=== PATIENT | female | born 1970 | race Caucasian/White ===

== ENCOUNTER 2019-02-21 17:28 | Inpatient (IN) | payer BC ==
[~2019-02-21 17:28] MED LIST: Iopamidol-370 76% 500 ML 1 ML ONE
[2019-02-21 18:08] LABS: #Lymphocytes 1.3 thou/uL (1.20-3.40); #Monocytes 0.3 thou/uL (0.11-0.59); #Neutrophils 10.2 thou/uL (1.40-6.50); %Basophils 0.2 % (0.0-1.0); %Eosinophils 0.3 % (0.0-10.0); %Lymphocytes 10.6 % (21.0-51.0); %Monocytes 2.6 % (0.0-10.0); %Neutrophils 86.3 % (42.0-75.0); Hemoglobin 15.6 g/dL (12.0-16.0); Mean Corpuscular HGB CONC 33.8 g/dL (32.0-36.0); Mean Corpuscular Volume 91.5 fL (78.0-98.0); Mean Platelet Volume 9.5 fL (7.4-10.4); Platelet Count 220 thou/uL (130-400); Red Blood Cell (RBC) Count 5.03 mill/uL (4.20-5.40); White Blood Cell (WBC) Count 11.8 thou/uL (4.8-10.8)
[2019-02-21 18:31] LABS: ALT (SGPT) 20 U/L (8-55); AST (SGOT) 18 U/L (5-34); Albumin 4.6 g/dL (3.5-5.0); Alkaline Phosphatase 57 U/L (40-110); Anion Gap 11 mmol/L (10-20); BUN (Urea Nitrogen) 10 mg/dL (7.0-18.7); Calc. Creatinine Clearance 0 mL/min (70-130); Calcium 9.5 mg/dL (7.8-10.44); Carbon Dioxide 28 mmol/L (22-29); Chloride 100 mmol/L (98-107); Estimated GFR-MDRD 71; Globulin 2.8 g/dL (2.4-3.5); Glucose 111 mg/dL (70-105); Lipase 22 U/L (8-78); Potassium 3.6 mmol/L (3.5-5.1); Protein, Total 7.4 g/dL (6.0-8.3); Sodium 135 mmol/L (136-145)
[2019-02-21 18:34] LABS: Bilirubin Negative (Negative); Blood, Urine Negative (Negative); Clarity Clear (Clear); Glucose, Urine (Dipstick) Normal (Negative); Leukocyte Negative Leu/uL (Negative); Nitrite Negative (Negative); Protein, Urine (Dipstick) Negative (Neg-Trace); Urobilinogen Normal mg/dL (Less than 2)
[2019-02-21] MEDS ORDERED: Morphine 4 MG/ML VIAL ONE (18:42)
[2019-02-21] MEDS ORDERED: Ondansetron PF 4 MG/2 ML Vial ONE (18:42)
--- NOTE | 2019-02-21 18:54 | RAD ---
EXAM: Portable chest PROVIDED CLINICAL HISTORY: Nausea, abdominal pain COMPARISON: 01/28/2018 FINDINGS: Cardiac and mediastinal silhouette is within normal limits. No focal consolidation, pleural fluid or pneumothorax evident. IMPRESSION: No evidence for an acute cardiopulmonary process.
--- NOTE | 2019-02-21 21:23 | CT ---
EXAM: CT abdomen and pelvis with IV contrast PROVIDED CLINICAL HISTORY: Abdominal pain COMPARISON: None FINDINGS: The visualized lung bases are free of significant opacity. The solid abdominal organs demonstrate an unremarkable CT appearance. There is no bowel dilatation, free fluid or free air apparent. The appendix is dilated and fluid-fill ed. There is surrounding fat stranding. Fat-containing left inguinal hernia. No regional lymph node enlargement apparent. The regional major vascular structures appear unremarkab le. The osseous structures demonstrate no concerning lytic or blastic lesions. IMPRESSION: Findings compatible with acute appendicitis.
[2019-02-21] MEDS ORDERED: Piperacillin/Tazobactam 3.375 GM VIAL ONE (22:17)
[2019-02-22] MEDS ORDERED: Ondansetron ODT 4 MG TAB SL PRN (00:07)
[2019-02-22] MEDS ORDERED: Ondansetron PF 4 MG/2 ML Vial IVP PRN ×2 (00:07→15:11)
[2019-02-22] MEDS: Morphine 4 MG/ML VIAL SLOW IVP PRN ×2 (00:30→04:00)
[2019-02-22] MEDS: Sodium Chloride 0.9% 1,000 ML IV SCH ×2 (00:31→09:23)
[2019-02-22 01:38] VITALS: BMI 27.6
[2019-02-22] MEDS ORDERED: Piperacillin/Tazobactam 3.375 GM in Sodium Chloride 0.9% 100 ML IVPB SCH ×2 (04:00→18:00)
--- NOTE | 2019-02-22 08:56 | HP ---
CHIEF COMPLAINT: Right lower quadrant abdominal pain. HISTORY OF PRESENT ILLNESS: This is a 48-year-old female with a 24-hour history of vague abdominal pain, which is now right lower quadrant associated with nausea. No vomiting. No fever. PAST MEDICAL HISTORY: She has ADD. PAST SURGICAL HISTORY: Hysterectomy, right inguinal hernia x2. MEDICATIONS: Adderall. ALLERGIES: NO KNOWN DRUG ALLERGIES. SOCIAL HISTORY: She is . 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 No tobacco. Social alcohol. FAMILY HISTORY: Noncontributory. PHYSICAL EXAMINATION: VITAL SIGNS: Temperature 98.4, pulse 80, and blood pressure 99/64. GENERAL: She is awake, alert. Does not appear to be in any distress. ABDOMEN: Soft, nondistended. She has percussion tenderness in the right lower quadrant. EXTREMITIES: Unremarkable. LABORATORY DATA: White count of 11.8, H and H of 15 and 46, and platelet count 220. Electrolytes are fine. CT scan shows acute appendicitis. ASSESSMENT: Acute appendicitis. PLAN: Laparoscopic appendectomy. CONSENT: I have discussed planned procedure as well as risk of bleeding, infection, injury to bowel, bladder, need to open, she understands and gives informed consent. Job ID: [id number]
[2019-02-22] MEDS: Piperacillin/Tazobactam 3.375 GM in Sodium Chloride 0.9% 100 ML IVPB SCH ×3 (09:23→21:06)
[2019-02-22] MEDS ORDERED: Rocuronium Bromide 10 MG/ML (10ML VIAL) ONE (11:28)
[2019-02-22] MEDS ORDERED: Lidocaine 1% PF 5 ML VIAL ONE (11:28)
[2019-02-22] MEDS ORDERED: PROPOFOL 200 MG/20 ML VIAL ONE (11:28)
[2019-02-22] MEDS ORDERED: Fentanyl 100 MCG/2 ML VIAL ONE ×2 (12:31→14:12)
[2019-02-22] MEDS ORDERED: Lidocaine 1% w/Epinephrine 1:100K 20 ML VIAL ONE (14:08)
[2019-02-22] MEDS ORDERED: Bupivacaine 0.25% HCL 30 ML VIAL ONE (14:08)
[2019-02-22] MEDS ORDERED: Meperidine HCl/PF 25 MG/ML VIAL SLOW IVP PRN (14:51)
[2019-02-22] MEDS ORDERED: Ondansetron HCl/PF 4 MG/2 ML Vial IVP PRN (14:51)
[2019-02-22] MEDS ORDERED: Promethazine HCl 25 MG/ML VIAL SLOW IVP PRN (14:51)
[2019-02-22] MEDS ORDERED: Promethazine HCl 25 MG/ML VIAL IM PRN ×2 (14:51→15:11)
[2019-02-22] MEDS ORDERED: Morphine 2 MG/ML SYRINGE SLOW IVP PRN (15:11)
[2019-02-22] MEDS ORDERED: hydrALAZINE 20 MG/ML VIAL SLOW IVP PRN (15:11)
[2019-02-22] MEDS ORDERED: Dextrose 50% Abboject 50 ML SYRINGE SLOW IVP PRN (15:11)
[2019-02-22] MEDS ORDERED: Dextrose 5% in Water 1,000 ML IV PRN (15:11)
[2019-02-22] MEDS ORDERED: HYDROcodone/Acetaminophen 10/325 mg Tablet PO PRN (15:11)
[2019-02-22] MEDS ORDERED: Morphine 4 MG/ML VIAL SLOW IVP PRN (15:11)
[2019-02-22] MEDS ORDERED: Ondansetron PF 4 MG/2 ML Vial ONE (15:27)
[2019-02-22] MEDS ORDERED: Morphine 4 MG/ML VIAL ONE (15:31)
[2019-02-22] MEDS: Ketorolac Tromethamine 30 MG/ML VIAL IVP SCH (17:46)
[2019-02-22] MEDS ORDERED: FLU VACC QS2019-20(6MOS UP)/PF 60 MCG/0.5 ML SYRINGE IM ONE (21:00)
[2019-02-22] MEDS: HYDROcodone/Acetaminophen 10/325 mg Tablet PO PRN (21:05)
[2019-02-22] MEDS: Famotidine 20 MG TAB PO SCH (21:05)
[2019-02-22] MEDS: Famotidine/PF 20 mg/2ml Vial SLOW IVP SCH (21:06)
[2019-02-23] MEDS: Ketorolac Tromethamine 30 MG/ML VIAL IVP SCH ×3 (00:24→10:59)
[2019-02-23] MEDS: HYDROcodone/Acetaminophen 10/325 mg Tablet PO PRN ×2 (05:09→08:37)
[2019-02-23] MEDS: Piperacillin/Tazobactam 3.375 GM in Sodium Chloride 0.9% 100 ML IVPB SCH ×2 (05:11→10:58)
[2019-02-23 06:40] LABS: #Lymphocytes 0.7 thou/uL (1.20-3.40); #Monocytes 0.4 thou/uL (0.11-0.59); #Neutrophils 6.6 thou/uL (1.40-6.50); %Basophils 0.2 % (0.0-1.0); %Eosinophils 0.2 % (0.0-10.0); %Lymphocytes 8.6 % (21.0-51.0); %Monocytes 5.6 % (0.0-10.0); %Neutrophils 85.4 % (42.0-75.0); Hemoglobin 12.6 g/dL (12.0-16.0); Mean Corpuscular HGB CONC 35.1 g/dL (32.0-36.0); Mean Corpuscular Hemoglobin 32.3 pg (27.0-31.0); Mean Corpuscular Volume 92.1 fL (78.0-98.0); Mean Platelet Volume 9.4 fL (7.4-10.4); Platelet Count 160 thou/uL (130-400); RBC Distribution Width 10.9 % (11.5-14.5); Red Blood Cell (RBC) Count 3.89 mill/uL (4.20-5.40); White Blood Cell (WBC) Count 7.8 thou/uL (4.8-10.8)
[2019-02-23 06:57] LABS: Anion Gap 13 mmol/L (10-20); BUN (Urea Nitrogen) 7 mg/dL (7.0-18.7); Calc. Creatinine Clearance 98 mL/min (70-130); Calcium 8.2 mg/dL (7.8-10.44); Carbon Dioxide 20 mmol/L (22-29); Chloride 106 mmol/L (98-107); Estimated GFR-MDRD 78; Glucose 108 mg/dL (70-105); Potassium 3.5 mmol/L (3.5-5.1); Sodium 135 mmol/L (136-145)
[2019-02-23 07:56] VITALS: BP 93/62; TEMP 98
[2019-02-23] MEDS: Famotidine 20 MG TAB PO SCH (08:36)
[2019-02-23] MEDS: Famotidine/PF 20 mg/2ml Vial SLOW IVP SCH (08:37)
--- NOTE | 2019-02-25 11:04 | OP ---
DATE OF PROCEDURE: 02/22/2019 PREOPERATIVE DIAGNOSIS: Acute appendicitis. PROCEDURE PERFORMED: Laparoscopic appendectomy. INDICATIONS: A 48-year-old female, presented with an 18-hour history of right lower quadrant pain. CT showed acute appendicitis. FINDINGS: Acute gangrenous appendicitis. DESCRIPTION OF PROCEDURE: After informed consent was obtained, patient was taken to the operating room, given general endotracheal anesthesia, placed in the supine position. Abdomen was prepped and draped in usual fashion. Local anesthesia infiltrated subcutaneously and deep a subumbilical incision was performed, subcu divided sharply. The fascia was incised after two 2-0 silk Vicryl sutures were placed through the side of midline. There were no palpable adhesions. A blunt 12 mm trocar inserted. Pneumoperitoneum was created to a pressure of 15 mmHg. Zero degree laparoscope inserted under direct vision. Two 5 mm ports were placed, one suprapubic and one right lateral abdomen. The appendix was found. The mesoappendix divided utilizing the LigaSure. Base of appendix was divided utilizing linear 45 mm stapler. The appendix placed in endosac, removed from the abdomen through the umbilical port in the endosac. Hemostasis was assured. Trocars and retractors removed. The fascia closed with interrupted 0 Vicryl sutures. Skin closed with interrupted 4-0 Rapide. Dermabond applied. Patient tolerated the procedure well, transferred to Recovery in good condition. Sponge and needle count verified correct x2. Job ID: [id number]
== END 2019-02-23 11:55 | disposition home or self-care (01) | DRG 343 ==
LOC: ERS 17:28 → SURG B 22:10
PROVIDERS: ADMIT Surgery; ATTEND Surgery
PROC: 0DTJ4ZZ Resection of Appendix, Percutaneous Endoscopic Approach (ICD-10-PCS; principal; 2019-02-22)
DX: K35.891 Other acute appendicitis without perforation, with gangrene (principal); Z90.710 Acquired absence of both cervix and uterus; F98.8 Other specified behavioral and emotional disorders with onset usually occurring in childhood and adolescence; Z90.49 Acquired absence of other specified parts of digestive tract; Z79.899 Other long term (current) drug therapy; Z91.048 Other nonmedicinal substance allergy status
CPT/HCPCS: 36415; 71045; 74177; 80048; 80053; 81003; 83690; 85025; 87086; 88304; 90471; 90686; 93005; 96361; 96365; 96375; G0008; J1885; J2001; J2270; J2405; J2543; J2704; J3010; J3490; Q9967; S0020

== ENCOUNTER 2021-02-26 11:51 | Outpatient (CLI) | payer BC | END 2021-02-26 11:52 | disposition home or self-care (01) | LOC: BICMAMMO 11:51 | PROVIDERS: ATTEND Family Medicine | DX: Z12.31 Encounter for screening mammogram for malignant neoplasm of breast (principal) | CPT/HCPCS: 77063; 77067 ==